=== PATIENT | male | born 1935 | race Caucasian/White ===

== ENCOUNTER 2020-07-31 17:05 | Emergency (ER) | payer MEDICARE, OTHER ==
[2020-07-31 20:27] LABS: BASOPHIL 0.4 % (0-2); EOSINOPHIL 0.2 % (0-7); HCT 37.8 % (42.0-52.0); HGB 12.5 g/dl (13.2-18.0); LYMPHOCYTE 7.4 % (15-48); MCH 31.3 pg (25.0-31.0); MCHC 33.1 g/dL (32.0-36.0); MCV 94.7 fL (78.0-100.0); MONOCYTE 4.6 % (0-12); MPV 9.1 fL (6.0-9.5); NEUTROPHIL 87.2 % (41-80); NRBC 0; PLT 200 K/uL (150-400); RBC 3.99 M/uL (4.70-6.00); RDW 12.5 % (11.5-14.0); WBC 11.6 K/uL (4.0-10.5)
[2020-07-31 20:44] LABS: ALBUMIN 3.6 g/dL (3.4-5.0); BILIRUBIN - TOTAL 0.4 mg/dL (0.2-1.0); BUN/CREAT RATIO (CALC) 25.5 RATIO; CREATININE 0.94 mg/dL (0.67-1.17); GLOBULIN (CALCULATION) 3.3 g/dL; POTASSIUM 3.9 mmol/L (3.5-5.1); TOTAL PROTEIN 6.9 g/dL (6.4-8.2)
[2020-08-01 06:53] LABS: BASOPHIL 0.3 % (0-2); EOSINOPHIL 0.1 % (0-7); HCT 37.1 % (42.0-52.0); HGB 12.6 g/dl (13.2-18.0); LYMPHOCYTE 10.1 % (15-48); MCH 31.7 pg (25.0-31.0); MCV 93.2 fL (78.0-100.0); MONOCYTE 7.6 % (0-12); MPV 9.2 fL (6.0-9.5); NEUTROPHIL 81.6 % (41-80); NRBC 0; PLT 193 K/uL (150-400); RBC 3.98 M/uL (4.70-6.00); RDW 12.6 % (11.5-14.0); WBC 9.6 K/uL (4.0-10.5)
[2020-08-01 07:06] LABS: INR 1.05 (0.9-1.2)
[2020-08-01 07:15] LABS: ALBUMIN 3.7 g/dL (3.4-5.0); BILIRUBIN - TOTAL 0.6 mg/dL (0.2-1.0); BUN/CREAT RATIO (CALC) 23.5 RATIO; CREATININE 0.85 mg/dL (0.67-1.17); GLOBULIN (CALCULATION) 3.1 g/dL; TOTAL PROTEIN 6.8 g/dL (6.4-8.2)
== END 2020-08-01 15:00 | disposition other institution (70) ==
LOC: FER 17:05
PROVIDERS: Emergency Medicine Emergency Medical Services; Nurse Practitioner Family
DX: R33.9 Retention of urine, unspecified (principal); R31.0 Gross hematuria; E11.9 Type 2 diabetes mellitus without complications; I10 Essential (primary) hypertension; Z88.0 Allergy status to penicillin; Z87.891 Personal history of nicotine dependence; Z79.899 Other long term (current) drug therapy; Z79.84 Long term (current) use of oral hypoglycemic drugs
CPT/HCPCS: 36415; 80053; 85025; 85610; 85730